=== PATIENT | male | born 1940 ===

== ENCOUNTER 2019-03-19 14:51 | Emergency (ER) | payer MEDICARE, BC ==
[~2019-03-19] VITALS: Ht 180.3 cm; Wt 104.3 kg
[~2019-03-19 14:51] MED LIST: ADVAIR 100-501 EACH; CIPRO500 MG PO; COLACE100 M1 PO; FLAGYL500 MG PO; FLONASE NS; LEVAQUIN500 MG PO; NIFEDIPINE ER30 M1 PO; NORCO 10-325 T1 EACH PO; PANTOPRAZOLE SO40 MG PO; PROTONIX40 MG/ML PO; TYLENOL WITH C1 EACH PO; VITAMIN D1000 UNI1 PO; ZOFRAN ODT4 MG PO
--- OUTSIDE RECORDS SUMMARY | 2019-03-19 14:55 | XMS REPORT | Clinical Summary ---
Author Author BRIAN [facility] Address Unknown Phone Unavailable Care Team Providers Care Element Burner Name Role Phone Pedro Luis De La Garza MD PCP Allergies Comments Active Allergy Reactions Severity Noted Date Gi bleeding Celecoxib Other (See 12/25/2008 Comments) Medications End Date Status Medication Sig Dispensed Refills Start Date Active albuterol HFA (PROAIR Inhale 1 puff 0 HFA) 90 mcg/actuation by mouth via inhaler inhaler every 6 (six) hours as needed for Wheezing. Active fluticasone-salmeterol Inhale 1 puff 0 (ADVAIR) 500-50 mcg/dose by mouth via diskus inhaler inhaler 2 (two) times daily. Active HYDROcodone-acetaminophen Take 1 tablet 0 (NORCO 10-325) 10-325 mg by mouth per tablet every 6 (six) hours as needed for Pain. Active aspirin 325 MG tablet Take 325 mg 0 by mouth every 6 (six) hours as needed for Pain. Active Problems Problem Noted Date Lipoma 10/18/2018 Encounters Care Team Description Date Type Specialty Tadeo Lam III, MD 10/18/2018 Anesthesia Event Tevin Colvin MD BIOPSY/EXCISION,SOFT TISSUE HEAD/NECK 10/18/2018 Surgery Tevin Colvin MD 10/18/2018 Hospital Encounter Lizy Phoenix NP 10/17/2018 Anesthesia Pre-Admission Testing Event Tevin Colvin MD Lipoma of upper extremity, unspecified laterality 10/17/2018 Hospital Pre-Admission Testing Encounter 10/17/2018 Orders Only General Internal Medicine after 03/18/2018 Social History Date Tobacco Use Types Packs/Day Years Used Former Smoker Smokeless Tobacco: Never Used Comments: quit x 30 yrs ago Alcohol Use Drinks/Week oz/Week Comments No Alcohol Habits Answer Date Recorded How often do you have a drink containing alcohol? Never 10/17/2018 How many drinks containing alcohol do you have on Not asked a typical day when you are drinking? How often do you have six or more drinks on one Not asked occasion? Sex Assigned at Date Recorded Not on file Industry Job Start Date Occupation Not on file Not on file Not on file Travel End Travel History Travel Start No recent travel history available. Last Filed Vital Signs Time Taken Vital Sign Reading 10/18/2018 5:55 PM DELIVERY DRIVER/CUSTOMER SERVICE Blood Pressure 134/60 10/18/2018 5:55 PM DELIVERY DRIVER/CUSTOMER SERVICE Pulse 50 10/18/2018 5:55 PM DELIVERY DRIVER/CUSTOMER SERVICE Temperature 36.3 C (97.4 F) 10/18/2018 5:55 PM DELIVERY DRIVER/CUSTOMER SERVICE Respiratory Rate 18 10/18/2018 5:55 PM DELIVERY DRIVER/CUSTOMER SERVICE Oxygen Saturation 95% - Inhaled Oxygen - Concentration 10/18/2018 11:23 AM DELIVERY DRIVER/CUSTOMER SERVICE Weight 108.2 kg (238 lb 9.6 oz) 10/18/2018 11:23 AM DELIVERY DRIVER/CUSTOMER SERVICE Height 182.9 cm (6' 0.01") 10/18/2018 11:23 AM DELIVERY DRIVER/CUSTOMER SERVICE Body Mass Index 32.35 Plan of Treatment Not on file Procedures Comments Procedure Name Priority Date/Time Associated Diagnosis RHYTHM STRIP - SCAN 10/19/2018 1:00 PM DELIVERY DRIVER/CUSTOMER SERVICE TISSUE EXAM AP Routine 10/18/2018 4:22 PM DELIVERY DRIVER/CUSTOMER SERVICE BIOPSY/EXCISION,SOFT 10/18/2018 Lipoma of torso TISSUE HEAD/NECK 1:20 PM DELIVERY DRIVER/CUSTOMER SERVICE Case Notes 1 HOUR ECG 12-LEAD Routine 10/17/2018 1:43 PM DELIVERY DRIVER/CUSTOMER SERVICE Procedure Note - Interface, External Ris In - 10/17/2018 4:48 PM DELIVERY DRIVER/CUSTOMER SERVICE Ventricula r Rate 61 BPM Atrial Rate 61 BPM P-R Interval 166 ms QRS Duration 126 ms Q-T Interval 450 ms QTC Calculatio n(Bazett) 453 ms P [place] 45 degrees R [place] -39 degrees T [place] 1 degrees Sinus rhythm with marked sinus arrhythmia Left axis deviation Right bundle branch block Abnormal ECG When compared with ECG of 22:14, No significan t change was found ECG 12-LEAD Routine 10/17/2018 1:43 PM DELIVERY DRIVER/CUSTOMER SERVICE HEMOGLOBIN Routine 10/17/2018 1:41 PM DELIVERY DRIVER/CUSTOMER SERVICE ELECTROLYTE PANEL Routine 10/17/2018 1:41 PM DELIVERY DRIVER/CUSTOMER SERVICE BUN AND CREATININE Routine 10/17/2018 1:41 PM DELIVERY DRIVER/CUSTOMER SERVICE GLUCOSE Routine 10/17/2018 1:41 PM DELIVERY DRIVER/CUSTOMER SERVICE after 03/18/2018 Results * RHYTHM STRIP - SCAN (10/19/2018 1:00 PM DELIVERY DRIVER/CUSTOMER SERVICE) Narrative Performed At * Tissue Exam (10/18/2018 4:22 PM DELIVERY DRIVER/CUSTOMER SERVICE) Case Report Surgical Pathology [facility] Report [facility] Case: [id number] Authorizing Provider:Tevin Colvin MDCollected: 10/18/2018 1622 Ordering Location: [facility] PERIOPERATIVE Received: 10/19/2018 0813 SERVICES Pathologist: Rose Marie Reis MD Specimen:Soft Tissue, Other, LIPOMA DIAGNOSIS A. SOFT TISSUE, CHEST WALL, [facility] EXCISIONAL BIOPSY: [facility] - WEIGHT: 3GM - LIPOMA WITH FOCAL FAT NECROSIS WITH FOREIGN BODY TYPE GIANT CELL REACTION - NEGATIVE FOR NECROSIS, ATYPIA AND LIPOBLASTS Signing Pathologist Direct Phone Line: [phone] CPT Code(s) 73133 [facility] CLINICAL HISTORY Lipoma of torso [facility] SPECIMEN SOURCE Lipoma [facility] GROSS DESCRIPTION The specimen is received in a [facility] formalin-filled container [facility] labeled with the patient's information and labeled "lipoma" and consists of a 3 gm segment of adipose tissue measuring 2 x 1.5 x 1 cm. The specimen is entirely inked black. the specimen is serially sectioned. The cut surface shows a homogeneous, yellow, glistening cut surface. There are no areas of hemorrhage or necrosis. The specimen is entirely submitted in A1 through A3. CG/ew MICROSCOPIC DESCRIPTION Performed. [facility] Specimen Tissue Performing Organization Address City/State/Zipcode Phone Number [facility] [address] [place] [address] MEDICAL CENTER * ECG 12 lead (10/17/2018 1:43 PM DELIVERY DRIVER/CUSTOMER SERVICE) Specimen Narrative Performed At Ventricular Rate 61 BPM [facility] Atrial Rate 61 BPM P-R Interval 166 ms QRS Duration 126 ms Q-T Interval 450 ms QTC Calculation(Bazett) 453 ms P [place] 45 degrees R [place] -39 degrees T [place] 1 degrees Sinus rhythm with marked sinus arrhythmia Left axis deviation Right bundle branch block Abnormal ECG When compared with ECG of 11-APR-2006 22:14, No significant change was found Confirmed by MD MCKEON JOSEPH P ([id number]) on 10/18/2018 6:16:00 AM Procedure Note Interface, External Ris In - 10/18/2018 6:16 AM DELIVERY DRIVER/CUSTOMER SERVICE Ventricular Rate 61 BPM Atrial Rate 61 BPM P-R Interval 166 ms QRS Duration 126 ms Q-T Interval 450 ms QTC Calculation(Bazett) 453 ms P [place] 45 degrees R [place] -39 degrees T [place] 1 degrees Sinus rhythm with marked sinus arrhythmia Left axis deviation Right bundle branch block Abnormal ECG When compared with ECG of 11-APR-2006 22:14, No significant change was found Confirmed by MD MCKEON JOSEPH P ([id number]) on 10/18/2018 6:16:00 AM Performing Organization Address City/State/Zipcode Phone Number [facility] * BUN and Creatinine (10/17/2018 1:41 PM DELIVERY DRIVER/CUSTOMER SERVICE) BUN 27 (H) 7 - 21 mg/dL [facility] Creatinine 0.76 0.57 - 1.25 mg/dL [facility] EGFR 100Comment: ESTIMATED GFR IS mL/min/1.73 sq m [facility] NOT ACCURATE CREATININE [facility] CLEARANCE IN PREDICTING GLOMERULAR FILTRATION RATE. ESTIMATED GFR IS NOT APPLICABLE FOR DIALYSIS PATIENTS. Specimen Blood Performing Organization Address City/[facility]/Zipcode Phone Number [facility] [address] [place] [address] [facility] * Hemoglobin (10/17/2018 1:41 PM DELIVERY DRIVER/CUSTOMER SERVICE) Hemoglobin 15.1 13.7 - 17.5 GM/DL [facility] Specimen Blood Performing Organization Address City/[facility]/Zipcode Phone Number [facility] [address] [place] [address] [facility] * Glucose (10/17/2018 1:41 PM DELIVERY DRIVER/CUSTOMER SERVICE) Glucose 106 (H) 70 - 105 mg/dL [facility] Specimen Blood Performing Organization Address City/[facility] Number [facility] [address] [place] [address] [phone] [facility] * Electrolytes (10/17/2018 1:41 PM DELIVERY DRIVER/CUSTOMER SERVICE) Sodium 142 136 - 145 meq/L [facility] Potassium 4.0 3.5 - 5.1 meq/L [facility] Chloride 107 98 - 107 meq/L [facility] CO2 27 22 - 29 meq/L [facility] Specimen Blood Performing Organization Address City/[facility] Phone Number [facility] [address] [place] [address] [phone] [facility] after 03/18/2018 Insurance Payer Benefit Subscriber ID Type Phone Address Plan / Group MEDICARE MEDICARE A xxxxxxxxxxx Medicare B BLUE CROSS/BLUE SHIELD BCBS xxxxxxxxxxxx [facility] [phone] [address] [place] [address] [place] Advance Directives For more information, please contact: [address] [phone] Date Inactivated Comments Code Status Date Activated Full Code 10/18/2018 11:13 AM This code status was determined by: Patient
--- OUTSIDE RECORDS SUMMARY | 2019-03-19 14:55 | XMS REPORT ---
Author Author [facility] Address Unknown Phone Unavailable Care Team Providers Care Aircraft Charter Dispatcher Name Role Phone CHRIS COLVIN Unavailable Unavailable Problems This patient has no known problems. Allergies, Adverse Reactions, Alerts This patient has no known allergies or adverse reactions. Medications This patient has no known medications. Results Test Description Test Time Test Comments Text Results Atomic Results Result Comments TISSUE EXAM 2018-10-23 18:58:00 Surgical Pathology Report Case: [id number] Authorizing Provider: Tevin Colvin MD Collected: 10/18/2018 1622 Ord ering Location: [facility] PERIOPERATIVE Received: 10/19/2018 0813 SERVICES Pathologist: Rose Marie Reis MD Specimen: Soft Tissue, Other, LIPOMA A. SOFT TISSUE, CHEST WALL, EXCISIONAL BIOPSY: - WEIGHT: 3GM - LIPOMA WITH FOCAL FAT NECROSIS WITH FOREIGN BODY TYPE GIANT CELL REACTION - NEGATIVE FOR NECROSIS, ATYPIA AND LIPOBLASTS Signing Pathologist Direct Phone Line: [phone] signed by Rose Marie Reis MD on 10/23/2018 at 6:58 [id number] of torsoLipoma The specimen is received in a formalin-filled container labeled with the patient's information and labeled [...] entirely submitted in A1 through A3. CG/ew Performed. ELECTROLYTES 2018-10-17 15:50:00 SODIUM (BEAKER) (test rpwi=051) 142 meq/L 136-145 POTASSIUM (BEAKER) (test eusn=842) 4.0 meq/L 3.5-5.1 CHLORIDE (BEAKER) (test hbrz=731) 107 meq/L 98-107 CO2 (BEAKER) (test lpoz=866) 27 meq/L 22-29 [id number] 15:50:00* Test Item Value Reference Range Comments GLUCOSE RANDOM (SHAYE) (test vxxo=298) 106 mg/dL 70-105 BUN AND [id number] 15:50:00* Test Item Value Reference Range Comments BLOOD UREA NITROGEN (BEAKER) (test jhqz=767) 27 mg/dL 7-21 CREATININE (BEAKER) (test lyjr=484) 0.76 mg/dL 0.57-1.25 EGFR (AKER) (test qgji=6907) 100 mL/min/1.73 sq m ESTIMATED GFR IS NOT ACCURATE CREATININE CLEARANCE IN PREDICTING GLOMERULAR FILTRATION RATE. ESTIMATED GFR IS NOT APPLICABLE FOR DIALYSIS PATIENTS. [id number] 14:05:00* Test Item Value Reference Range Comments HEMOGLOBIN (SHAYE) (test orzh=393) 15.1 GM/DL 13.7-17.5
[2019-03-19] MEDS ORDERED: HYDROCODONE/APAP 7.5MG-325MG 1 EA TAB PO NR (17:00)
[2019-03-19] MEDS ORDERED: KETOROLAC TROMETHAMINE 60 MG/2 ML VIAL IM NR (17:00)
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
[2019-03-19 17:47] VITALS: BP 118/78
[2019-03-19] MEDS ORDERED: KETOROLAC TROMETHAMINE 60 MG/2 ML VIAL IM ONE (18:15)
== END 2019-03-19 18:12 | disposition home or self-care (01) ==
LOC: ER 14:51
DX: S20.212A Contusion of left front wall of thorax, initial encounter (principal); S20.211A Contusion of right front wall of thorax, initial encounter; V43.51XA Car driver injured in collision with sport utility vehicle in traffic accident, initial encounter; Y93.89 Activity, other specified; Y92.410 Unspecified street and highway as the place of occurrence of the external cause; E66.9 Obesity, unspecified; Z68.32 Body mass index [BMI] 32.0-32.9, adult; J44.9 Chronic obstructive pulmonary disease, unspecified; Z87.891 Personal history of nicotine dependence; M25.561 Pain in right knee; M54.9 Dorsalgia, unspecified; M54.2 Cervicalgia; Z88.5 Allergy status to narcotic agent
CPT/HCPCS: 71111; 93005; 99283; J1885